=== PATIENT | female | born 1930 | race Caucasian/White ===

== ENCOUNTER 2020-04-15 13:41 | Emergency (ER) | payer MEDICARE ==
[~2020-04-15] VITALS: Ht 167.6 cm; Wt 80.0 kg
[2020-04-15 14:02] VITALS: BP 176/75
[2020-04-15 15:07] LABS: CLARITY,URINE CLEAR (Clear); COLOR,URINE STRAW (Yellow); GLUCOSE, URINE NEGATIVE (Neg); KETONES,URINE NEGATIVE (Neg); LEUKOCYTE ESTERASE ,URINE TRACE (Neg); NITRITES, URINE NEGATIVE (Neg); OCCULT BLOOD,URINE SMALL (Neg); PROTEIN,URINE NEGATIVE (Neg); UROBILINOGEN,URINE 0.2 E.U/dL (0.2-1.0)
[2020-04-15 15:12] LABS: UA COLLECTION TYPE CLN CATCH MIDSTREAM
[2020-04-15 15:15] LABS: BACTERIA,URINE FEW /HPF (Neg); MUCUS STRANDS NONE SEEN /LPF (Neg); RBC,URINE 0-2 /HPF (0-2); SQUAMOUS EPITHELIAL CELL,UR FEW /LPF (FEW); WBC,URINE 0-4 /HPF (0-4)
[2020-04-15] MEDS ORDERED: acetaminophen 325mg tablet PO ONE (15:40)
== END 2020-04-15 17:03 | disposition home or self-care (01) ==
LOC: ER 13:42
DX: S89.92XA Unspecified injury of left lower leg, initial encounter (principal); M17.12 Unilateral primary osteoarthritis, left knee; M54.5 Low back pain; R10.9 Unspecified abdominal pain; X58.XXXA Exposure to other specified factors, initial encounter; Y93.89 Activity, other specified; Y92.89 Other specified places as the place of occurrence of the external cause; Y99.8 Other external cause status
CPT/HCPCS: 73564; 81001; 87088; 99284